=== PATIENT | male | born 1960 | race Caucasian/White ===

== ENCOUNTER 2022-09-20 10:49 | Emergency (ER) | payer SELFPAY ==
[~2022-09-20] VITALS: Ht 170.2 cm; Wt 76.8 kg
[2022-09-20] MEDS ORDERED: PERTUSS(ACELL),DIPH,TET VAC/PF 0.5 ML SYRINGE IM. ONE (12:15)
[2022-09-20] MEDS ORDERED: LIDOCAINE 1% 10 ML VIAL IM ONE (12:15)
[2022-09-20 12:59] VITALS: BP 131/71
== END 2022-09-20 13:04 | disposition home or self-care (01) ==
LOC: EMS 10:49
DX: S51.812A Laceration without foreign body of left forearm, initial encounter (principal); I10 Essential (primary) hypertension; W27.8XXA Contact with other nonpowered hand tool, initial encounter; Y93.89 Activity, other specified; Y92.89 Other specified places as the place of occurrence of the external cause; Y99.8 Other external cause status
CPT/HCPCS: 99283; 90715; 90471; 12002; J3490

== ENCOUNTER 2022-09-24 15:48 | Emergency (ER) | payer OTHER ==
[~2022-09-24] VITALS: Ht 170.2 cm; Wt 75.0 kg
[2022-09-24 16:44] VITALS: BP 165/84
== END 2022-09-24 17:29 | disposition home or self-care (01) ==
LOC: EMS 15:59
DX: S41.112D Laceration without foreign body of left upper arm, subsequent encounter (principal); I10 Essential (primary) hypertension; F10.20 Alcohol dependence, uncomplicated; X58.XXXD Exposure to other specified factors, subsequent encounter
CPT/HCPCS: 99281; Z7502

== ENCOUNTER 2022-10-01 07:49 | Emergency (ER) | payer OTHER ==
[~2022-10-01] VITALS: Ht 167.6 cm; Wt 75.0 kg
[2022-10-01 08:54] VITALS: BP 148/92
== END 2022-10-01 08:55 | disposition home or self-care (01) ==
LOC: EMS 07:55
DX: S51.812D Laceration without foreign body of left forearm, subsequent encounter (principal); I10 Essential (primary) hypertension; Z48.02 Encounter for removal of sutures; W26.8XXD Contact with other sharp object(s), not elsewhere classified, subsequent encounter
CPT/HCPCS: 99281; Z7502